=== PATIENT | female | born 1940 | race Caucasian/White ===

== ENCOUNTER 2019-10-08 21:50 | Emergency (ER) | payer MEDICARE, SELFPAY ==
--- NOTE | ~2019-10-08 | XR_ITS ---
EXAMINATION: XR chest 2V DATE: 10/08/2019 22:58 INDICATION: Nausea and dizziness, history of irregular heartbeat TECHNIQUE: AP and lateral views of the chest are obtained. COMPARISON: None available FINDINGS: The lungs are hyperinflated but free of acute opacities. There is no pleural effusion or pn eumothorax. The cardiomediastinal silhouette is normal. There is moderate thoracic spondylosis. IMPRESSION: 1. No acute cardiopulmonary abnormality. Reviewed, dictated and finalized at location A. [facility] [facility]
--- NOTE | 2019-10-08 22:00 | ECG_ITS ---
Measurements Intervals [place] Rate: 63 P: 54 MT: 152 QRS: -9 QRSD: 83 T: 14 QT: 411 QTc: 424 Interpretive Statements SINUS RHYTHM ATRIAL PREMATURE COMPLEXES BASELINE WANDER- V6 BORDERLINE ECG Electronically Signed On 10-14-2019 15:16:56 [employer]ATION HEL[employer] by Zeke Cm D.O.
[2019-10-08 22:03] VITALS: BP 137/75; PULSE 64; RESP 18; TEMP 36.9; O2SAT 99
--- NOTE | 2019-10-08 22:19 | ED.DIZZY ---
HPI - Dizziness General Chief Complaint: Dizziness Stated Complaint: dizzy Time Seen by Provider: 10/08/19 21:50 Source: patient and RN notes reviewed Mode of arrival: EMS Limitations: no limitations History of Present Illness HPI Narrative: A 79 y/p female presents to the ED via EMS from [facility] d/t dizziness beginning roughly Course Vital Signs Vital signs: Vital Signs Temperature 98.5 F 10/08/19 22:03 Pulse Rate 64 10/08/19 22:03 Respiratory Rate 18 10/08/19 22:03 Blood Pressure 137/75 10/08/19 22:03 Pulse Oximetry 99 10/08/19 22:03 Temperature 98.5 F 10/08/19 22:03 Pulse Rate 64 10/08/19 22:03 Respiratory Rate 18 10/08/19 22:03 Blood Pressure 137/75 10/08/19 22:03 Pulse Oximetry 99 10/08/19 22:03
[2019-10-08 22:21] VITALS: BP 137/75; PULSE 63; RESP 18; O2SAT 100
--- NOTE | 2019-10-08 22:28 | ED.SYNCOPE ---
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 She states that she was standing in a hot [facility] for a long time waiting for a table when she began to feel hot, sweaty, nauseas, and lightheaded. Per family reports that they were walking to the table when the pt had a syncopal episode that lasted roughly 30 seconds. They state that they caught the pt and lowered her into a chair. They deny the pt having any incontinences or convulsions. The pt still notes some lightheadedness and nausea. The pt denies any CP, sore throat, cough, body aches, rhinorrhea, ABD pain, vomiting, diarrhea, dysuria, or urinary frequency. complaint: loss of consciousness Onset (ago): minute(s) Duration of episode: 30 -: second(s) Prodromal symptoms: lightheaded, diaphoresis, nausea/vomiting (no vomiting) and other (feel hot) Witnessed: Yes - by Bystander Context: standing up Injuries sustained associated with event: none Current symptoms: lightheaded and nausea Related Data Allergies Allergy/AdvReac Type Severity Reaction Status Date / Time No Known Allergies Allergy Verified 10/09/19 02:56 Review of Systems Review of Systems: All systems reviewed & are unremarkable except as noted in HPI and below Constitutional: Constitutional: Denies body ache(s) and Reports other (felt hot and sweaty - resolved) ENT: Denies nasal discharge and Denies sore throat Cardiovascular: Cardiovascular: Denies chest pain and Reports lightheadedness Respiratory: Respiratory: Denies cough Gastrointestinal: Gastrointestinal: Denies abdominal pain, Denies fecal incontinence, Denies diarrhea, Reports nausea and Denies vomiting Genitourinary: Genitourinary: Denies nocturia, Denies dysuria and Denies urinary incontinence Neurologic: Reports syncope and Denies convulsions [facility] Past Medical History Medical History (Updated 10/09/19 @ 02:56 by Andres Caraballo MD) History of irregular heartbeat Surgical History Surgical History (Updated 10/08/19 @ 22:47 by Fred Naidu) History of tonsillectomy Social History Social History (Updated 10/08/19 @ 22:47 by Fred Naidu) Smoking status: Never smoker Exam Narrative: Exam Narrative: GENERAL: Well-appearing, well-nourished, and in no acute distress. HEAD: Normocephalic, atraumatic. ENT: Mucous membranes moist. CHEST: Clear to auscultation. No respiratory distress. HEART: Regular rate and rhythm. Normal peripheral pulses. ABDOMEN: Soft, nontender, nondistended. EXTREMITIES: Normal range of motion. No edema. NEURO: No focal deficits. Alert and oriented x3. PSYCH: Normal mood and affect. Course Vital Signs Vital signs: Vital Signs Temperature 98.5 F 10/08/19 22:03 Pulse Rate 64 10/08/19 22:03 Respiratory Rate 18 10/08/19 22:03 Blood Pressure 137/75 10/08/19 22:03 Pulse Oximetry 99 10/08/19 22:03 Temperature 98.1 F 10/09/19 03:13 Pulse Rate 75 10/09/19 03:13 Respiratory Rate 16 10/09/19 03:13 Blood Pressure 128/88 10/09/19 03:13 Pulse Oximetry 100 10/09/19 03:13 MDM - Syncope Lab Data Result diagrams: 10/08/19 23:07 10/08/19 23:07 Labs: Lab Results 10/08/19 10/08/19 10/09/19 Range/Units 23:07 23:07 01:24 WBC 17.3 H (4.5-10.0) K/mm3 RBC 4.33 (4.2-5.4) M/mm3 Hgb 13.5 (12.0-15.0) g/dL Hct 40.3 (37.0-47.0) % MCV 93.1 (80-100) fl MCH 31.2 (26-34) pg MCHC 33.5 (32-36) g/dl RDW 12.0 (11.5-14.5) % Plt Count 275 (150-375) k/mm3 MPV 10.2 (7.4-10.4) fl Immature Gran % (Auto) 0.6 H (0-0.5) % Neut % (Auto) 82.0 H (45.5-73.1) % Lymph % (Auto) 11.7 L (18.3-44.2) % M
[2019-10-08 22:46] VITALS: BP 140/99; PULSE 66; RESP 18
--- NOTE | 2019-10-08 22:49 | PC.NURSE ---
pt to xray via stretcher
[2019-10-08 23:00] VITALS: PULSE 60; RESP 13
[2019-10-08] MEDS: SODIUM CHLORIDE 0.9% IV 1,000 ML 999 ML IV CONT (23:09)
[2019-10-08 23:12] LABS: Basophils Absolute Auto 0.1 K/mm3 (0.0-0.1); Basophils Percent Auto 0.4 % (0.2-1.2); Eosinophils Percent Auto 0.2 % (0-4.4); Hematocrit 40.3 % (37.0-47.0); Hemoglobin 13.5 g/dL (12.0-15.0); Immature Granulocyte Percent A 0.6 % (0-0.5); Lymphocytes Absolute Auto 2.03 K/mm3 (0.9-3.2); Lymphocytes Percent Auto 11.7 % (18.3-44.2); Mean Corpuscular HGB Conc 33.5 g/dl (32-36); Mean Corpuscular Hemoglobin 31.2 pg (26-34); Mean Corpuscular Volume 93.1 fl (80-100); Mean Platelet Volume 10.2 fl (7.4-10.4); Monocytes Absolute Auto 0.9 K/mm3 (0.1-0.6); Monocytes Percent Auto 5.1 % (2.6-8.5); Neutrophils Absolute Auto 14.2 K/mm3 (1.3-6.7); Platelet Count Result 275 k/mm3 (150-375); Red Blood Count 4.33 M/mm3 (4.2-5.4); White Blood Count 17.3 K/mm3 (4.5-10.0)
[2019-10-08 23:16] VITALS: BP 128/64; PULSE 65; RESP 14
[2019-10-08 23:29] LABS: Blood Urea Nitrogen 19 mg/dL (7-17); Calcium 9.2 mg/dL (8.4-10.2); Carbon Dioxide 28 mmol/L (22-30); Chloride 103 mmol/L (98-107); Estimated Glomerular Filt Rate 48; Glucose 123 mg/dL (65-105); Magnesium 2.4 mg/dL (1.6-2.3); Sodium 139 mmol/L (137-145)
[2019-10-08 23:32] VITALS: BP 139/90; PULSE 0; RESP 15
--- NOTE | 2019-10-08 23:35 | PC.NURSE ---
urine sent down on pt at this time
[2019-10-08 23:41] LABS: Troponin I < 0.012 ng/mL (0.000-0.034)
--- NOTE | 2019-10-08 23:43 | PC.NURSE ---
paulina from lab called this rn to let me know there wasn't enough urine in sample that was sent down. notified.
[2019-10-09] VITALS (9 sets, daily range): BP systolic 98–144; BP diastolic 66–88; PULSE 71–79; RESP 15–20; TEMP 36.7; O2SAT 100
--- NOTE | 2019-10-09 00:24 | PC.NURSE ---
pt states she isn't able to give urine sample, refused straight cath.
--- NOTE | 2019-10-09 00:50 | PC.NURSE ---
pt states she isn't able to urinate at this time, refused straight cath.
--- NOTE | 2019-10-09 01:19 | PC.NURSE ---
pt attempting to use the restroom at this time.
--- NOTE | 2019-10-09 01:26 | PC.NURSE ---
urine being sent down on pt at this time
[2019-10-09 01:40] LABS: Add Urine Microscopic? YES; Appearance Urine Cloudy (Clear); Bacteria Urine Trace /hpf; Bilirubin Urine Negative (Negative); Color Urine Yellow (Yellow); Glucose Urine UA Negative (Negative); Ketones Urine 1+ mg/dL (Negative); Leukocyte Esterase Ur 2+ LEU/UL (Negative); Mucus Urine Few /lpf; Nitrate Urine Positive (Negative); Protein Urine Negative (Negative); Specific Grav Ur 1.014 (1.001-1.035); Squamous Epithelial Cell Urine Occasional /hpf (Few); Urobilinogen Urine Negative mg/dL (<2.0); WBC Urine >75 /hpf
[2019-10-09 01:42] LABS: Blood Urine Negative (Negative)
--- NOTE | 2019-10-09 02:38 | PC.NURSE ---
pt ambulated w/ no issues. pt denies any n/v or dizziness. md notified.
== END 2019-10-09 03:16 | disposition home or self-care (01) ==
PROVIDERS: Emergency Provider Emergency Medicine
DX: N39.0 Urinary tract infection, site not specified (principal); R55 Syncope and collapse
CPT/HCPCS: 36415; 71046; 80048; 81001; 83735; 84484; 85025; 87077; 87086; 87088; 87186; 93005; 96361; 96365; 99284; J0696; J7030

== ENCOUNTER 2024-04-21 11:48 | Emergency (ER) | payer MEDICARE, SELFPAY ==
[2024-04-21 11:56] VITALS: BP 139/89; PULSE 78; RESP 18; TEMP 36.6; O2SAT 100
--- NOTE | 2024-04-21 12:32 | ED.EAR ---
HPI - Ear Problem General Chief complaint: Ear Stated complaint: clean ears Time Seen by Provider: 04/21/24 12:18 Source: patient, RN notes reviewed and old records reviewed Mode of arrival: ambulatory Limitations: no limitations History of Present Illness HPI Narrative: 84-year-old female to [facility] from [facility] office requesting to have bilateral ears cleaned. Patient states that she was being seen today for her hearing aids and was told by staff at audiology office that her ears were impacted with cerumen and that they were not comfortable removing it. Patient states they advised her to come here. Patient denies ear pain, allergies, pertinent medical history. Patient resting in exam room comfortably with no complaints. Respirations even and nonlabored. Patient in no acute distress. Related Data Home Medications Medication Instructions Recorded Confirmed acebutolol 200 mg capsule mg 04/21/24 Allergies Allergy/AdvReac Type Severity Reaction Status Date / Time No Known Allergies Allergy Verified 10/09/19 02:56 Review of Systems Review of Systems: All systems reviewed & are unremarkable except as noted in HPI and below Constitutional: Constitutional: Reports no additional constitutional complaints Eyes: Eyes: Reports no additional eye complaints ENT: Reports as per HPI and Reports other (Patient complaint of bilateral cerumen impaction per her bag cutter. ) Cardiovascular: Cardiovascular: Reports no additional cardiovascular complaints, Denies chest pain and Denies dyspnea Respiratory: Respiratory: Reports no additional respiratory complaints, Denies cough and Denies dyspnea Musculoskeletal: Musculoskeletal: Reports no additional musculoskeletal complaints Neurologic: Reports system reviewed and no additional complaints, except as documented Psychiatric: Psychiatric: Reports no additional psychiatric complaints PMFSH Past Medical History Medical History History of irregular heartbeat Surgical History Surgical History History of tonsillectomy Social History Social History Smoking status: Never smoker Comments At the time of my signature, I reviewed and agree with the nursing past medical, surgical, social, and family history. There is no relevant family history pertinent to the patient complaint. Exam Const: General: cooperative, healthy appearing, comfortable, no acute distress, alert and well nourished Nutritional Appearance: well nourished Orientation/consciousness: patient oriented x3 Limitations: no limitations HENMT: Head: normal to inspection Ears: Abnormal EAC present cerumen impaction bilateral Face/Nose/Sinus: Normal external nose present, Normal nares present, normal facial exam, No erythema and No edema Face and sinus: normal facial exam, no erythema and no edema Mouth: Yes Normal oral and palatal mucosa present Eyes: General: appearance normal, both eyes and all related structures Neck: Neck: normal visual inspection, full ROM and no meningeal signs Chest: Chest palpation & inspection: normal inspection of the chest Resp: Effort & Inspection: normal respiratory effort and able to speak in complete sentences Cardio: Jugular venous distension: no JVD Rate: regular rate Rhythm: regular rhythm Back/Spine/Pelvis: Cervical Spine: cervical ROM normal Skin: General skin exam: normal color, no rashes or lesions noted and turgor normal Neuro: General: patient oriented x3, gait normal, moves all extremities and no meningeal signs Speech: normal speech Gait exam (Neuro): Normal gait present Extrem: General: normal to inspection and full ROM Psych: Appearance: grossly normal and well kempt Course Course Emergency Course: Some parts of this dictation were generated by voice rec
== END 2024-04-21 12:59 | disposition home or self-care (01) ==
PROVIDERS: Emergency Provider Nurse Practitioner Family; PCP Internal Medicine
DX: H61.23 Impacted cerumen, bilateral (principal)
CPT/HCPCS: 69210; 99212; G0463